=== PATIENT | male | born 2000 | race Caucasian/White ===

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

== ENCOUNTER 2024-12-12 07:51 | Day surgery (SDC) | payer BC ==
[2024-12-08 15:34] LABS: Absolute Lymphocytes (CBC) 1.3 K/uL (0.7-4.9); Hematocrit 49.1 % (39.6-49.0); Hemoglobin 17.3 g/dL (13.6-17.9); MCH 32.1 pg (27.0-35.0); MCHC 35.3 g/dL (32.0-36.0); MCV 91.2 fL (80-100); MPV 6.9 fL (7.6-11.3); Nucleated RBC Absolute Count 0.0 (0-0); Nucleated Red Blood Cells % 0.4 % (0-0); RBC Red Blood Cell Count 5.39 M/uL (4.33-5.43); White Blood Count 6.50 thou/uL (4.3-10.9)
[2024-12-08 15:49] LABS: Anion Gap 6.0 mEq/L (5.0-15.0); BUN Blood Urea Nitrogen 12.0 mg/dL (7-18); Glucose Level 103.0 mg/dL (74-106); Potassium 4.0 mEq/L (3.5-5.1)
[2024-12-12] MEDS: Ringers Lactate 1,000 ML IV ONE (08:10)
[2024-12-12] MEDS ORDERED: ONDANSETRON 4 MG/2 ML VIAL ONE (08:20)
[2024-12-12] MEDS ORDERED: LIDOCAINE 2% MPF 5 ML VIAL ONE (08:20)
[2024-12-12] MEDS ORDERED: FENTANYL CITR 100 MCG/2 ML ONE (08:20)
[2024-12-12] MEDS ORDERED: MIDAZOLAM HCL 2 MG/2 ML INJ ONE (08:20)
[2024-12-12] MEDS: CEFAZOLIN SODIUM 1 GM/VIAL ONE (08:23)
[2024-12-12] MEDS ORDERED: Mastisol Adhesive Liq ONE (09:36)
--- NOTE | 2024-12-12 09:40 | P.BOP ---
Preoperative diagnosis: Tender left proximal upper armtender subQ mass Postoperative diagnosis: same Primary procedure: Excisional biopsy left proximal left upper tender subQ mass 3x2 cm Estimated blood loss: <10cc Specimen: mass Findings: mass Anesthesia: General Complications: None Transferred to: Recovery Room Condition: Good
[2024-12-12 10:00] VITALS: O2SAT 100
[2024-12-12 13:41] VITALS: BP 112/69; TEMP 97.5
--- NOTE | 2024-12-12 21:35 | OP ---
Date of Procedure: 12/12/2024 Surgeon: Desmond Ramirez MD Diagnosis: Left proximal arm tender subcutaneous mass. Procedure: Excisional biopsy of left proximal tender subcutaneous mass on left arm, 3 x 2 cm. Estimated Blood Loss: Less than 10 cc. Specimen: Mass. Findings: Subcutaneous mass. Anesthesia: General plus local. Complications: None. Indications: This is a case of a 23-year-old patient, who comes to us with a tender mass, increasing in size and discomfort. He has some of the mass previously at different location. This is more pro ximal. He has been observing that, but is becoming too tender. He wants that excised. The benefits , alternatives, and risks of excision fully explained, which include, but not limited to infection, b leeding, damage to adjacent structures, anesthesia complication, recurrence, RI, and even . He understands this may not relieve any symptoms. He might need more than one surgical intervention. H e said on and off this mass has been draining. Today, it is not draining. Description Of Procedure: The patient was brought to the operating room, placed in supine position. Anesthesia was induced without complication. Left arm was prepped and draped in a sterile fashion. The area of concern was previously marked by me and the patient in the holding room. So, we made an incision in that area. Incision was carried down to subcutaneous tissue. We noticed once again thi s fatty tumor is attached to the fascia of the muscle, but does not penetrate the muscle. The tumor was completely excised. The area was irrigated. There was a small area of draining more distal that we also biopsied. The area was irrigated. Hemostasis was obtained. Local anesthesia was applied a nd then we closed the area with 3-0 Monocryl and then subcu 4-0 PDS. The patient tolerated the proce dure well. Steri-Strips placed over the area. The patient was sent to Recovery in stable condition. Condition: Stable. Disposition: Home. Activity: As tolerated. No heavy lifting. Follow up in my office in 1 week. Call for appointment at [phone]. Keep area dry for 48 hours, the n may shower. Keep Steri-Strips intact. ROSHAN/KURT Voice ID: [id number] Report ID: [id number]
== END 2024-12-12 11:45 | disposition home or self-care (01) ==
LOC: OR 07:51
PROVIDERS: ATTEND Surgery
PROC: 0JBF0ZZ Excision of Left Upper Arm Subcutaneous Tissue and Fascia, Open Approach (ICD-10-PCS; principal; 2024-12-12 09:10)
DX: D17.22 Benign lipomatous neoplasm of skin and subcutaneous tissue of left arm (principal)
CPT/HCPCS: 85025; 80048; 36415; 88304; 11403; J2704; J2003; J2250; J3010; J1100; J2405; J7120; J0690